=== PATIENT | male | born 1955 | race Caucasian/White ===

== ENCOUNTER 2016-07-08 14:07 | Emergency (ER) | payer MEDICARE, MEDICAID ==
[2016-07-08] MEDS ORDERED: METHYLPRED SOD SUCC 125 MG/2 ML VIAL ONE (14:37)
== END 2016-07-08 15:04 | disposition home or self-care (01) ==
LOC: ER 14:07
DX: L30.9 Dermatitis, unspecified (principal); Z79.899 Other long term (current) drug therapy; F17.210 Nicotine dependence, cigarettes, uncomplicated
CPT/HCPCS: 96372; 99283; J2930